=== PATIENT | female | born 2000 | race African-American/Black ===

== ENCOUNTER 2021-05-22 16:16 | Emergency (ER) | payer MEDICAID, OTHER ==
[~2021-05-22] VITALS: Ht 165.1 cm; Wt 64.0 kg
[2021-05-22 16:30] VITALS: BP 129/88
[2021-05-22] MEDS ORDERED: ONDA4TAB11 PO (18:52)
== END 2021-05-22 19:02 | disposition home or self-care (01) ==
LOC: ER 16:16
DX: S00.03XA Contusion of scalp, initial encounter (principal); W22.8XXA Striking against or struck by other objects, initial encounter; Y93.89 Activity, other specified; Y92.89 Other specified places as the place of occurrence of the external cause; Y99.8 Other external cause status
CPT/HCPCS: 81025; 99282